=== PATIENT | male | born 1945 | race Caucasian/White ===

== ENCOUNTER 2016-10-28 13:45 | Day surgery (SDC) | payer OTHER, MEDICARE ==
[2016-10-28] MEDS ORDERED: LR 1,000 ML IV ONE (14:13)
[2016-10-28 14:25] VITALS: PULSE 77
--- NOTE | 2016-10-28 15:38 | PDGENHP ---
History & Physical Chief Complaint: surveillance colonoscopy. History of Present Illness: 71 year old male with a family hx of CRC presents for surviellance colonoscopy. Pertinent Past, Social, Family History: PMHx: sky,htn, high cholesterol. FaMHx : Father CRC. SoHx: + alcohol. No cigs Relevant Physical Exam: HEENT: anicteric. CV: RRR + s1s2. Lungs: CTAB No w/r/ r. Abd: soft, nt, + bs. Ext: No c/c/e Cardiorespiratory Assessment: ASA 3
--- NOTE | 2016-10-28 15:39 | PDANEPAE ---
ANE Past Medical History - Cardiovascular History Hx Hypertension: Yes Hx Arrhythmias: Yes Hx Chest Pain: No Hx Coronary Artery / Peripheral Vascular Disease: Yes Hx CHF / Valvular Disease: No Hx Palpitations: No - Pulmonary History Hx COPD: No Hx Asthma/Reactive Airway Disease: No Hx Recent Upper Respiratory Infection: No Hx Oxygen in Use at Home: No - Neurologic History Hx Cerebrovascular Accident: No Hx Seizures: No Hx Dementia: No - Endocrine History Hx Diabetes: No - Renal History Hx Renal Disorders: No - Liver History Hx Hepatic Disorders: No - Neurological & Psychiatric Hx Hx Neurological and Psychiatric Disorders: Yes - Cancer History Hx Cancer: No - Congenital Disorder History Hx Congenital Disorders: No - GI History Hx Gastrointestinal Disorders: No - Chronic Pain History Chronic Pain: Yes (back pain) ANE Review of Systems - Exercise capacity METS (RN): 4 METS - Systems Respiratory: Reports: other (RAUL, uses CPAP with room air) - Pacemaker Pacemaker Type: Permanent Pacer/Defib Pacemaker Tapper Hand: [employer] Pacemaker Model: Evia DR-T Pacemaker Mode: ddd-cls Pacemaker Set Rate: 60 Date Pacemaker Last Checked: 08/05/16 ANE Patient History - Allergies Allergies/Adverse Reactions: No Known Allergies Allergy (Verified 10/16/16 11:14) - Home Medications Home Medications: Cholecalciferol Vit D3 [Vitamin D3 1000 units (OTC)] 07/16/13 [Last Taken 10/28] LORazepam [Ativan 1 mg (RX)] PRN 07/16/13 [Last Taken 10/07/16] Lisinopril [Zestril 20 mg (RX)] 07/16/13 [Last Taken 10/28/16 08:00] Metoprolol Succinate Xr [Toprol Xl 50 mg (RX)] 07/16/13 [Last Taken 10/28/16 08 :00] Eliquis 10/16/16 [Last Taken 10/26/16] - NPO status NPO Since - Liquids (Date): 10/28/16 NPO Since - Liquids (Time): 07:30 NPO Since - Solids (Date): 10/27/16 NPO Since - Solids (Time): 08:00 - Smoking Hx Smoking Status: Former smoker - Family Anes Hx Family Hx Anesthesia Complications: none ANE Labs/Vital Signs - Vital Signs Blood Pressure: 144/93 Heart Rate: 77 Respiratory Rate: 16 O2 Sat (%): 93 Height: 171.45 cm Weight: 88.451 kg ANE Physical Exam - Airway Mallampati Score: Class 2 Mouth exam: normal dental/mouth exam - Pulmonary Pulmonary: no respiratory distress, no rales or rhonchi, clear to auscultation - Cardiovascular Cardiovascular: other (Atrial fib, pacemaker) - ASA Status ASA Status: III ANE Anesthesia Plan Anesthesia Plan: MAC
[2016-10-28] MEDS ORDERED: PROPOFOL 200 MG/20 ML VIAL ONE ×2 (15:42→15:58)
[2016-10-28] MEDS ORDERED: NALOXONE HCL 0.4 MG/ML INJ IVP PRN (15:42)
[2016-10-28] MEDS ORDERED: ONDANSETRON 4 MG/2 ML VIAL IVP PRN (15:47)
--- NOTE | 2016-10-28 16:35 | POSTOPPROG ---
Post Op Note Date of Operation: 10/28/16 Surgeon: Andry Huitron Anesthesia: IV Sedation Pre-op Diagnosis: famhx crc Post-op Diagnosis: asc colon polyp Indication: famhx crc Procedure: colonoscopy with bx Findings: as polyp Inf/Abcess present in the surg proc area at time of surgery?: No
[2016-10-28 16:47] VITALS: TEMP 97.3
--- NOTE | 2016-10-28 16:48 | POSTANESTH ---
Post Anesthetic Evaluation Cardiovascular Status: Similar to Pre-Op Cond Respiratory Status: Normal, Stable, Similar to Pre-op Cond. Level of Consciousness/Mental Status: Can Participate in Eval, Mildly Sleepy, Arousable Pain Control: Adequate, Prn Tx Ordered Nausea/Vomiting Control: Adequate, Prn Tx Ordered Complications Possibly Related to Anesthesia: None Noted
[2016-10-28 17:55] VITALS: BP 156/92
[2016-10-28 17:56] VITALS: RESP 14; O2SAT 95
--- NOTE | 2016-10-29 01:04 | GPN ---
[f rep st] PROCEDURE NOTE DATE OF PROCEDURE: 10/28/2016 PROCEDURE: Colonoscopy with biopsy. INDICATION: The patient is a 71-year-old male with a family history of colon cancer who presents for surveillance colonoscopy. CONSENT: Risks, benefits, and alternatives of the procedure were discussed in great detail with the patient. Risk of infection, bleeding, perforation, and sedation were discussed. All questions answered and informed consent was obtained. MEDICATIONS: Propofol. Please see anesthesiology notes for details. ESTIMATED BLOOD LOSS: Insignificant. COLONOSCOPIC EVALUATION: A rectal exam was performed and palpable masses felt. The Olympus adult colonoscope was introduced into the rectum and advanced to cecum, where the ileocecal valve and appendiceal orifice were seen. The colonic mucosa was carefully examined on both insertion and withdrawal of the scope. The quality of the prep was good. Several diverticula were visualized in the descending and sigmoid colon. In the ascending colon, behind a fold, a 1.2 cm polyp was seen. It was removed in pieces. It was in a challenging location, it was removed in a piecemeal fashion using biopsy forceps. No other masses or polyps seen. IMPRESSION: 1. Complex ascending colon polyp, status post removal by excisional biopsy in a piecemeal fashion. 2. Diverticulosis. RECOMMENDATIONS: 1. Follow up on biopsy results. 2. Fiber supplementation 3. Repeat colonoscopy in 1 year.. /[id number]/MODL MTDD
== END 2016-10-28 17:35 | disposition home or self-care (01) ==
LOC: FSGY 13:45
PROVIDERS: ATTEND Internal Medicine Gastroenterology
PROC: 0DBK8ZX Excision of Ascending Colon, Via Natural or Artificial Opening Endoscopic, Diagnostic (ICD-10-PCS; principal; 2016-10-28 15:30)
DX: Z12.11 Encounter for screening for malignant neoplasm of colon (principal); D12.2 Benign neoplasm of ascending colon; K57.30 Diverticulosis of large intestine without perforation or abscess without bleeding; Z80.0 Family history of malignant neoplasm of digestive organs
CPT/HCPCS: J2704

== ENCOUNTER → 2017-05-08 | Outpatient (CLI) | payer OTHER, MEDICARE | LOC: BHFA 08:30 | PROVIDERS: ATTEND Internal Medicine Cardiovascular Disease | DX: I42.9 Cardiomyopathy, unspecified (principal) ==

== ENCOUNTER 2017-07-21 05:50 | Observation (INO) | payer OTHER, MEDICARE ==
--- NOTE | 2017-07-21 05:57 | EDPHY ---
H & P Stated Complaint: vision problems Source: Patient - Personal History Current Tetanus/Diphtheria Vaccine: Yes Tetanus Vaccine Date: <10YRS - Medical/Surgical History Hx Asthma: No Hx Chronic Respiratory Disease: No Hx Diabetes: No Hx Cardiac Disease: No Hx Renal Disease: No Hx Cirrhosis: No Hx Alcoholism: No Hx HIV/AIDS: No Hx Splenectomy or Spleen Trauma: No Other PMH: a fib, pacemaker, high cholesterol, HTN, - Social History Smoking Status: Former smoker Time Seen by Provider: 07/21/17 05:55 HPI/ROS: HPI CHIEF COMPLAINT: "My eyes were not connected" HISTORY OF PRESENT ILLNESS: Patient is a 72-year-old male, history of hypertension AFib, also has a pacemaker, presents to the emergency room stating that 5 min before 5:00 a.m. When he woke up to get a glass of water as he was thirsty he noticed that his vision was not correct. He describes that his vision was off and he thought he was seeing double or that one eye was looking higher than the other. He denies loss of vision. He denies chest pain or shortness of breath denies headache. He denies dizziness room spinning. He denies feeling off balance. States this lasted approximately 20 min and then resolved on its own. Decided come to the emergency room for further evaluation of this. Currently he has no symptoms. He denies any trouble with his vision or double vision. He states he did not have any numbness or tingling or focal weakness. He does not recall having trouble swallowing. He woke up with the symptoms approximately an hour ago. There are now resolved. He denies chest pain, shortness of breath, palpitations with this. Past Medical History: Obstructive sleep apnea, hypertension, hyperlipidemia, AFib, hypertrophic cardiomyopathy Past Surgical History: Left chest pacemaker Social History: Denies drugs alcohol tobacco daily. Family History: Noncontributory ROS REVIEW OF SYSTEMS: A comprehensive 10 point review of systems is otherwise negative aside from elements mentioned in the history of present illness. Exam Constitutional appears well nontoxic no acute distress, triage nursing summary reviewed, vital signs reviewed, awake/alert. Eyes normal conjunctivae and sclera, EOMI, PERRLA. HENT normal inspection, atraumatic, moist mucus membranes, no epistaxis, neck supple/ no meningismus, no raccoon eyes. Respiratory clear to auscultation bilaterally, normal breath sounds, no respiratory distress, no wheezing. Cardiovascular rate normal, regular rhythm, no murmur, no edema, distal pulses normal. Gastrointestinal soft, non-tender, no rebound, no guarding, normal bowel sounds, no distension, no pulsatile mass. Genitourinary no CVA tenderness. Musculoskeletal no midline vertebral tenderness, full range of motion, no calf swelling, no tenderness of extremities, no meningismus, good pulses, neurovascularly intact. Skin pink, warm, & dry, no rash, skin atraumatic. Neurologic unremarkable neurological exam, no focal neuro deficit appreciated, awake, alert and oriented x 3, AAOx3, moves all 4 extremities equally, motor intact, sensory intact, CN II-XII intact, normal cerebellar, normal vision, normal speech. Psychiatric normal mood/affect. Heme/Lymph/Immune no lymphadenopathy. Differential Diagnosis: Includes but is not limited to in a particular order posterior circulation stroke, CVA, TIA, intracranial bleed, vertigo, electrolyte disturbance, cardiac arrhythmia, dehydration Medical Decision Making: Plan for this patient IV establishment full web analyst obtain EKG and basic blood work including cardiac marker. Chest x-ray. Will proceed with CT head without contrast, and CT angiogram head and neck. He has a left chest pacemaker. His symptoms are currently resolved. And he woke up with these. 0605AM: He has an NIH stroke scale of 0 at this time. He is not a tPA candidate due to the symptoms having resolved as well as he woke up the symptoms. Re-evaluation: 0616: I did speak with [facility] Dr. Palacio we reviewed the case in detail. He does think it is reasonable to do a CT scan head without contrast and a CT angiogram head and neck to further evaluate his circulation. EKG interpretation by me on record in [facility] system. Impression time of EKG 6:14 a.m., atrially paced rhythm. First-degree AV block SD interval 260 right bundle-branch block present. Very similar to the morphology dated 2015 EKG. 0719: CT angiogram head and neck and CT head without contrast shows no evidence of bleed or stroke. No large vessel occlusion. Called to me by Dr. Sinha. Patient be admitted the hospital for further GI evaluation stroke evaluation. Will be admitted for further evaluation. (Joel Hartman) Constitutional: Initial Vital Signs Temperature (C) 36.5 C 07/21/17 05:51 Heart Rate 80 07/21/17 05:51 Respiratory Rate 16 07/21/17 05:51 Blood Pressure 170/104 H 07/21/17 05:51 O2 Sat (%) 96 07/21/17 05:51 O2 Delivery Mode Room Air Allergies/Adverse Reactions: No Known Allergies Allergy (Verified 10/16/16 11:14) Home Medications: Medication Instructions Recorded Cholecalciferol Vit D3 [Vitamin D3 3,000 units PO DAILY 07/16/13 (*)] Apixaban [Eliquis] 5 mg PO BID 10/16/16 Lisinopril [Zestril 40 mg (*)] 40 mg PO DAILY 07/21/17 Metoprolol Tartrate [Lopressor 50 50 mg PO BID 07/21/17 mg (*)] Rosuvastatin Calcium [Crestor] 5 mg PO DAILY 07/21/17 Medical Decision Making Other Provider: Patient was seen and disposition made by Dr. Hartman. I was not involved in the care of this patient. (Hai Bravo) - Data Points Laboratory Results: Laboratory Results 07/21/17 06:05 07/21/17 06:05 Medications Given: Discontinued Medications Apixaban (Eliquis) 5 mg PO BID ON LICENSE OF [facility] Stop: 01/17/18 08:59 Last Admin: 07/21/17 08:54 Dose: Not Given Cholecalciferol (Vitamin D) 3,000 units PO DAILY ON LICENSE OF [facility] Stop: 01/17/18 08:59 Last Admin: 07/21/17 09:33 Dose: Not Given Sodium Chloride (Ns) 1,000 mls @ 0 mls/hr IV ONCE ONE; Wide Open PRN Reason: Protocol Stop: 07/21/17 06:03 Last Admin: 07/21/17 06:16 Dose: 1,000 mls Lisinopril (Zestril) 40 mg PO DAILY ON LICENSE OF [facility] Stop: 01/17/18 08:59 Last Admin: 07/21/17 08:54 Dose: Not Given Metoprolol Tartrate (Lopressor) 50 mg PO BID ON LICENSE OF [facility] Stop: 01/17/18 08:59 Last Admin: 07/21/17 08:54 Dose: Not Given Rosuvastatin Calcium (Crestor) 5 mg PO DAILY ON LICENSE OF [facility] Stop: 01/17/18 08:59 Last Admin: 07/21/17 09:34 Dose: Not Given Departure - Departure Disposition: [facility] Acute Clinical Impression: TIA (transient ischemic attack) Qualifiers: Transient cerebral ischemia type: unspecified Qualified Code(s): G45.9 - Transient cerebral ischemic attack, unspecified Condition: Good
[2017-07-21] MEDS ORDERED: NS 1,000 ML IV ONE (06:02)
--- NOTE | 2017-07-21 06:17 | CPEKG ---
Heart Rate: 64 RR Interval: 938 P-R Interval: 260 QRSD Interval: 144 QT Interval: 460 QTC Interval: 475 P Manito: 56 QRS Manito: -62 T Wave Manito: 139 EKG Severity - ABNORMAL ECG - EKG Impression: ATRIAL-PACED COMPLEXES EKG Impression: FIRST DEGREE AV BLOCK EKG Impression: PROBABLE LEFT ATRIAL ABNORMALITY EKG Impression: RIGHT BUNDLE BRANCH BLOCK EKG Impression: LVH WITH IVCD AND SECONDARY REPOL ABNRM Electronically Signed By: Joel Hartman 21-Jul-2017 07:22:14
[2017-07-21 06:19] LABS: PLATELET COUNT 212 10^3/uL (150-400)
[2017-07-21 06:21] LABS: INR 1.16 (0.83-1.16)
[2017-07-21] MEDS ORDERED: IOPAMIDOL (ISOVUE 370) 100 ML BTL IV ONE (06:23)
[2017-07-21] MEDS ORDERED: ACETAMINOPHEN 325 MG TAB PO PRN (08:26)
[2017-07-21] MEDS ORDERED: ONDANSETRON 4 MG/2 ML VIAL IVP PRN (08:26)
[2017-07-21] MEDS ORDERED: ONDANSETRON DISINTEGRATING 4 MG TAB PO PRN (08:26)
[2017-07-21 08:35] VITALS: O2SAT 93
[2017-07-21] MEDS ORDERED: CHOLECALCIFEROL VIT D3 1,000 UNITS TAB PO SCH (09:00)
[2017-07-21] MEDS ORDERED: METOPROLOL TARTRATE 50 MG TAB PO SCH (09:00)
[2017-07-21] MEDS ORDERED: APIXABAN 5 MG TAB PO SCH (09:00)
[2017-07-21] MEDS ORDERED: LISINOPRIL 40 MG TAB PO SCH (09:00)
[2017-07-21] MEDS ORDERED: ROSUVASTATIN CALCIUM 10 MG TAB PO SCH (09:00)
--- NOTE | 2017-07-21 10:56 | PDGENHP ---
History and Physical - Chief Complaint Acute diplopia - History of Present Illness Primary care provider: Dr. Sandoval Primary console attendant: Dr. Torito Flores HPI: 72-year-old male presenting with acute diplopia characterized as blurred and double vision with onset of symptoms at 4:55 a.m. On the day of presentation , duration 20 min. Patient reports that the symptoms began after he awoke to use the restroom, and they were alleviated without any intervention. He checked his blood pressure at the time of symptoms and noted that his systolic was in the 150s. He has been adherent to all of his home medications he reports that he went to bed feeling well on the evening prior. The patient reports his exercise tolerance is at his baseline and he normally ambulates 4 miles per day without any chest pain or visual symptoms. He does report that he has been experiencing some exertional shortness of breath but this has not substantially worsened in the past month. He also reports that his systolic blood pressure is normally in the 130-140 range, and 1-2 months ago his lisinopril was up titrated by his primary care provider, and he added Crestor. The patient otherwise denies any infectious symptoms and he denies ever experiencing any visual changes. He has recently been working in the garden and has been in a crouched position but has denied any eye irritation. History Information - Allergies/Home Medication List Allergies/Adverse Reactions: No Known Allergies Allergy (Verified 10/16/16 11:14) Home Medications: Cholecalciferol Vit D3 [Vitamin D3 1000 units (OTC)] 3,000 units PO DAILY [Last Taken 07/21/17] Apixaban [Eliquis] 5 mg PO BID 10/16/16 [Last Taken 07/21/17] Lisinopril [Zestril 40 mg (*)] 40 mg PO DAILY 07/21/17 [Last Taken 07/21/17] Metoprolol Tartrate [Lopressor 50 mg (*)] 50 mg PO BID 07/21/17 [Last Taken ] Rosuvastatin Calcium [Crestor 10mg (RX)] 5 mg PO DAILY 07/21/17 [Last Taken ] I have personally reviewed and updated: family history, medical history, social history, surgical history - Past Medical History hypertension, hyperlipidemia Additional medical history: Obstructive sleep apnea. Hypertrophic cardiomyopathy. Complete heart block. Atrial tachycardia, atrial flutter, atrial fibrillation - Surgical History Additional surgical history: Atrial ablation in 2008 in 2008. Permanent pacemaker placement - Family History Additional family history: No coronary artery disease, no CVA - Social History Smoking Status: Former smoker Alcohol Use: Occasionally (1 beer nightly) Drug Use: None Additional social history: Normally physically active, ambulates 4-5 miles daily Review of Systems Review of Systems: ROS: 10pt was reviewed & negative except for what was stated in HPI & below EENMT: Reports: double vision Physical Exam Physical Exam: Temp Pulse Resp BP Pulse Ox 36.6 C 67 16 178/109 H 93 07/21/17 08:27 07/21/17 08:27 07/21/17 08:27 07/21/17 08:27 07/21/17 08:27 Constitutional: no apparent distress, appears nourished, not in pain, obese Eyes: PERRL, anicteric sclera, EOMI, No scleral injection Ears, Nose, Mouth, Throat: moist mucous membranes, hearing normal, ears appear normal, no oral mucosal ulcers Cardiovascular: regular rate and rhythym, no murmur, rub, or gallop (Distant heart sounds), No edema Respiratory: no respiratory distress, no rales or rhonchi, clear to auscultation Gastrointestinal: normoactive bowel sounds, soft, non-tender abdomen, no palpable masses Skin: warm, No abrasion, No erythema, No rash Neurologic: AAOx3, sensation intact bilaterally, CN II-XII Intact, No weakness Psychiatric: interacting appropriately, not anxious, not encephalopathic, thought process linear Lab Data & Imaging Review 07/21/17 06:05 07/21/17 06:05 WBC 5.81 10^3/uL (3.80-9.50) 07/21/17 06:05 RBC 5.30 10^6/uL (4.40-6.38) 07/21/17 06:05 Hgb 17.4 g/dL (13.7-17.5) 07/21/17 06:05 Hct 49.6 % (40.0-51.0) 07/21/17 06:05 MCV 93.6 fL (81.5-99.8) 07/21/17 06:05 MCH 32.8 pg (27.9-34.1) 07/21/17 06:05 MCHC 35.1 g/dL (32.4-36.7) 07/21/17 06:05 RDW 13.2 % (11.5-15.2) 07/21/17 06:05 Plt Count 212 10^3/uL (150-400) 07/21/17 06:05 MPV 9.8 fL (8.7-11.7) 07/21/17 06:05 Neut % (Auto) 61.0 % (39.3-74.2) 07/21/17 06:05 Lymph % (Auto) 22.2 % (15.0-45.0) 07/21/17 06:05 Trinity % (Auto) 12.7 % (4.5-13.0) 07/21/17 06:05 Eos % (Auto) 2.4 % (0.6-7.6) 07/21/17 06:05 Baso % (Auto) 1.0 % (0.3-1.7) 07/21/17 06:05 Nucleat RBC Rel Count 0.0 % (0.0-0.2) 07/21/17 06:05 Absolute Neuts (auto) 3.54 10^3/uL (1.70-6.50) 07/21/17 06:05 Absolute Lymphs (auto) 1.29 10^3/uL (1.00-3.00) 07/21/17 06:05 Absolute Monos (auto) 0.74 10^3/uL (0.30-0.80) 07/21/17 06:05 Absolute Eos (auto) 0.14 10^3/uL (0.03-0.40) 07/21/17 06:05 Absolute Basos (auto) 0.06 10^3/uL (0.02-0.10) 07/21/17 06:05 Absolute Nucleated RBC 0.00 10^3/uL (0-0.01) 07/21/17 06:05 Immature Gran % 0.7 % (0.0-1.1) 07/21/17 06:05 Immature Gran # 0.04 10^3/uL (0.00-0.10) 07/21/17 06:05 PT 15.0 SEC (12.0-15.0) 07/21/17 06:05 INR 1.16 (0.83-1.16) 07/21/17 06:05 APTT 31.8 SEC (23.0-38.0) 07/21/17 06:05 Sodium 139 mEq/L (135-145) 07/21/17 06:05 Potassium 4.4 mEq/L (3.5-5.2) 07/21/17 06:05 Chloride 104 mEq/L (97-110) 07/21/17 06:05 Carbon Dioxide 24 mEq/l (22-31) 07/21/17 06:05 Anion Gap 11 mEq/L (8-16) 07/21/17 06:05 BUN 18 mg/dL (7-23) 07/21/17 06:05 Creatinine 0.8 mg/dL (0.7-1.3) 07/21/17 06:05 Estimated GFR > 60 07/21/17 06:05 Glucose 91 mg/dL (70-100) 07/21/17 06:05 Calcium 9.1 mg/dL (8.5-10.4) 07/21/17 06:05 Troponin I 0.037 ng/mL (0.000-0.034) H 07/21/17 06:05 Triglycerides 69 mg/dL (40-150) 07/21/17 06:05 Cholesterol 161 mg/dL (140-220) 07/21/17 06:05 Cholesterol Risk Factr 0.5 (0.2-1.0) 07/21/17 06:05 LDL Cholesterol, Calc 91 mg/dL (80-100) 07/21/17 06:05 LDL Risk Factor 0.8 (0.2-1.0) 07/21/17 06:05 VLDL Cholesterol 13 mg/dL (8-25) 07/21/17 06:05 Non-HDL Cholesterol 104 mg/dL (90-129) 07/21/17 06:05 HDL Cholesterol 57 mg/dL (40-65) 07/21/17 06:05 LDL/HDL Ratio 1.60 RATIO (1.00-3.64) 07/21/17 06:05 Cholesterol/HDL Ratio 2.82 RATIO (1.00-4.97) 07/21/17 06:05 Visualized and Interpreted Chest x-ray results: Yes Chest X-Ray results: other (Very mild interstitial prominence) Visualized and Interpreted EKG results: Yes EKG Interpretation: Positive for: other (Atrial paced, right bundle branch block , 1st degree AV block) Assessment & Plan Assessment: 72-year-old male presenting with acute diplopia Plan: 1. Diplopia. Acute, new problem this provider, further workup indicated. Given patient's cardiovascular risk factors, he is at risk for TIA -discussed with Dr. Xavier Cardenas, it he will consult from Neurology, he has reported to me a 10 min episode of binocular diplopia which he believes is most likely an intra-ocular issue and not neurovascular, does not recommend adding anti-platelet medications or additional TIA evaluation at this time -CT angiogram demonstrating no head or neck vascular stenosis 2. Abnormal troponin level. Acute, new problem this provider, further workup indicated. Patient presents with marginally elevated troponin level in the setting of acute symptoms including diplopia but no chest pain or chest flutter -his elevated troponin level may be secondary to his underlying hypertrophic cardiomyopathy, but we should trend his troponins to ensure that they are not evidence of acute ischemia -repeat troponin level at 1:00 p.m. -order outside records including most recent echocardiogram from [facility] -get interrogation of pacemaker to ensure he is not experiencing any tachyarrhythmia which would be otherwise causing myocardial ischemia 3. Hypertension. Chronic, currently acutely elevated, potentially secondary to acute distress -continue lisinopril 40 mg daily, continue metoprolol, consider adding amlodipine with outpatient follow-up -reviewed outside records including 07/16/[address] Shelley Espitia, she reports the patient was on metoprolol and amlodipine at that time, patient has not had any adverse reactions to amlodipine 4. Hyperlipidemia. Checking lipid panel now, increase Crestor if LDL not less than 100 5. Atrial fibrillation and atrial flutter. Patient has long history of atrial tachyarrhythmias, getting interrogation to ensure that they are not related to his current symptoms -continue beta-monisha and Eliquis Diet. Regular comma passed swallow eval Prophylaxis. High risk patient, currently on Eliquis Code. Full Disposition. Anticipated discharge is 07/21 versus 07/22, pending cardiac enzyme results as outlined above.
[2017-07-21 12:11] VITALS: BP 162/97; PULSE 76; RESP 21; TEMP 98.1
--- NOTE | 2017-07-21 14:11 | GCON ---
[f rep st] CONSULTATION NEUROLOGY CONSULTATION DATE OF CONSULTATION: 07/21/2017 REFERRING PHYSICIAN: Placido Garza MD CHIEF COMPLAINT: Transient double vision. HISTORY OF PRESENT ILLNESS: The patient is a very pleasant, 72-year-old gentleman with a known history of atrial fibrillation and on Eliquis therapy for oral anticoagulation for at least the last 5 years. He also has a pacemaker implanted in 2012. He does not know of any prior history of stroke or TIA. This morning around 5 a.m. or so, the patient noted he had horizontal double vision. When he closed 1 eye, the 2nd visual object resolved, consistent with binocular horizontal diplopia. This lasted for 10 minutes and then spontaneously resolved. He had no other associated neurologic symptoms such as facial weakness or tingling/numbness. No motor or sensory symptoms in his limbs. No dysarthria. No trouble swallowing. No language or motor speech abnormalities. It was purely isolated horizontal binocular diplopia. He has had no recent changes in medications. He has been on Eliquis since the summer. He was on a different agent prior to that. He does have transitional bifocals, which have not been updated in quite some time. He came to Emergency Department and head CT showed an elderly brain without any previous cortical infarcts. Angiography of the head and neck was negative. He did have a slightly elevated troponin at 0.037. Otherwise, labs were fairly unremarkable. He has had no further symptoms. REVIEW OF SYSTEMS: A 10-point review of systems was only pertinent to the HPI. PAST MEDICAL HISTORY, SOCIAL HISTORY, FAMILY HISTORY, HOME MEDICATIONS, ALLERGIES: See Dr. Garza's H and P. PHYSICAL EXAMINATION: VITAL SIGNS: Blood pressure 172/109, temperature 36.6, heart rate 66, respirations 16. GENERAL: In no acute distress, very pleasant. NEUROLOGICAL EXAMINATION: COGNITION: Higher mental function normal. Oriented 5/5. No obvious cognitive abnormalities. No aphasia. CRANIAL NERVES: Normal 2 through 7. 11 and 12: He has no double vision now. No extraocular movement abnormalities. MOTOR: Normal strength, tone, and reflexes throughout. SENSORY : Normal to light touch throughout. COORDINATION: Normal in upper and lower extremities. SUMMARY: He has normal neurologic exam. IMPRESSION AND PLAN: 1. Transient binocular diplopia, resolved. The patient had an isolated event of binocular horizontal diplopia which has now resolved. The duration was around 10 minutes. There were no other associated neurologic symptoms to suggest an acute neurovascular syndrome. CTA of the head and neck was negative for any large vessel occlusions. Head CT without contrast showed normal changes for age. He has had no further symptoms. He had his pacemaker interrogated and there was no episode dysrhythmia this morning. His last episode of probable atrial flutter was on June 28, according to the pacemaker technologist. He had no chest pain or any other associated symptoms such as shortness of breath. We discussed the differential diagnosis including changes in acuity, as he does have transitional bifocals. He will follow up with Ophthalmology/Optometry as an outpatient to ensure his prescription is up to date. He will also follow up with me in 2-4 weeks for clinical reassessment. I have asked him to see Optometry prior to my appointment. He is agreeable. He will continue oral anticoagulation indefinitely. I do not think we need to add further anti thrombotic therapy -- as this episode is not highly suggestive of acute neurovascular episode. No further recommendations now. I coordinated care with his hospitalist and left a message. Per my view, he can discharge when he is cleared from the medical standpoint. We will look for seeing as an outpatient. Seventy total minutes on floor today reviewing history, neuroimaging, coordinating care, and in direct counseling with the patient. We will sign off and follow up as needed. Please do not hesitate to call with any questions or changes in neurologic status with this very pleasant patient. Thank you for this consultation. /[id number]/MODL MTDD
--- NOTE | 2017-07-21 14:51 | PDDCSUM ---
Discharge Summary Discharge Summary: DISCHARGE SUMMARY FOLLOW-UP ITEMS: Outpatient ophthalmology evaluation Consider outpatient stress test DATE OF ADMISSION: 07/21/2017 DATE OF DISCHARGE: 07/21/2017 DISCHARGE DIAGNOSES: 1. Acute binocular diplopia 2. Acute worsening of chronic hypertension 3. Abnormal troponin level CONSULTATIONS: Neurology PROCEDURES / IMAGING: CT angiogram of the head and neck demonstrating no focal stenosis Interrogation of pacemaker demonstrating no tachy or Stefan arrhythmias at the time of symptoms CHIEF COMPLAINT: Acute diplopia SUBJECTIVE: Patient is feeling well at time discharge, he has not had a recurrence of symptoms PHYSICAL EXAM ON DISCHARGE: Systolic blood pressure 150-160, HR 76,, alert awake oriented x3, no apparent distress, pain level 0/10 LABS ON DISCHARGE: LDL 91, hemoglobin A1c 5.1%, troponin level negative, initially 0.037 HOSPITAL COURSE BY PROBLEM: The patient presented with acute binocular diplopia, most likely secondary to progressive age-related will changes, potentially more on 1 side than the other , resulting in the apparent symptom in low lighting, upon awakening. The symptoms abated without any intervention and the patient was seen by Neurology for consultation. Dr. Xavier Cardenas did not feel like the symptoms were consistent with a TIA and no medication adjustments recommended. The patient was notedly more hypertensive than his baseline, with systolic levels ranging between 150 and 170, and the patient felt like this was secondary to stress from being in the hospital, as his normal blood pressure readings at home are 130-140. That being said, the patient's goal systolic blood pressure should be less than 130, and the patient was advised to follow up with his primary care provider to have repeat levels drawn, and consider introduction of a thiazide diuretic. The patient did have a transiently abnormal troponin level, and is unclear whether this is secondary to acute stress in the setting of his underlying hypertrophic cardiomyopathy, possibly hypertensive related, less likely myocardial ischemia from obstructive coronary disease. That being said, the patient has not recently had a stress test, and I advised the patient to discuss this with his primary care provider in the outpatient setting. Given the patient's exercise tolerance has remained steady and he currently has good metabolic performance, I think it is less likely that he has obstructive disease and will not perform stress test at this time. I did evaluate the patient's echo from Dr. Flores office from 2 months ago, and there were no significant valvular abnormalities which could have contributed to symptoms. The patient also had interrogation of his device and no tachy or Stefan arrhythmias occurred at the time of the patient's symptoms. We recommend the patient follow up with an outpatient machine setter and repairer and then follow up with Dr. Xavier Cardenas if no ophthalmological issues are identified. DISCHARGE MEDICATIONS: Please see official discharge medication reconciliation sheet in chart , continue home medications diet changes. DISCHARGE INSTRUCTIONS: Please follow up with new primary care provider and you primary machine setter and repairer. The patient's initial history and physical was performed greater than 6 hr from the time of the patient's discharge encounter and discharge order. Patient's initial history and physical began at 8:26 a.m., and the discharge evaluation was at 2:44 p.m.
== END 2017-07-21 15:50 | disposition home or self-care (01) ==
LOC: F3N 08:23
PROVIDERS: ADMIT Student in an Organized Health Care Education/Training Program; ATTEND Student in an Organized Health Care Education/Training Program
DX: H53.2 Diplopia (principal); I10 Essential (primary) hypertension; R79.89 Other specified abnormal findings of blood chemistry; Z87.891 Personal history of nicotine dependence; Z95.0 Presence of cardiac pacemaker
CPT/HCPCS: 70450; 70496; 70498; 71045; 93005; G0378; Q9967

== ENCOUNTER → 2017-08-08 | Outpatient (CLI) | payer OTHER, MEDICARE | LOC: BHFA 14:00 | PROVIDERS: ATTEND Internal Medicine Cardiovascular Disease | DX: I48.91 Unspecified atrial fibrillation (principal); I48.92 Unspecified atrial flutter; R79.89 Other specified abnormal findings of blood chemistry | CPT/HCPCS: 78452; 93017; A9500; J2785 ==

== ENCOUNTER 2017-08-26 08:08 | Day surgery (SDC) | payer OTHER, MEDICARE ==
[2017-08-26] MEDS ORDERED: FAMOTIDINE 20 MG TAB PO ONE (08:11)
[2017-08-26] MEDS ORDERED: diphenhydrAMINE 25 MG CAP PO ONE ×2 (08:11→08:33)
[2017-08-26] MEDS ORDERED: DIAZEPAM 5 MG TAB PO ONE (08:11)
[2017-08-26] MEDS ORDERED: NS 1,000 ML IV ONE (08:11)
[2017-08-26] MEDS ORDERED: ASPIRIN EC 325 MG TAB PO ONE ×2 (08:11→08:34)
--- NOTE | 2017-08-26 08:30 | CPEKG ---
Heart Rate: 65 RR Interval: 923 P-R Interval: 260 QRSD Interval: 154 QT Interval: 460 QTC Interval: 479 P [place]: 24 QRS [place]: -63 T Wave [place]: 132 EKG Severity - ABNORMAL ECG - EKG Impression: ATRIAL-PACED COMPLEXES EKG Impression: FIRST DEGREE AV BLOCK EKG Impression: PROBABLE LEFT ATRIAL ABNORMALITY EKG Impression: RIGHT BUNDLE BRANCH BLOCK EKG Impression: LVH WITH IVCD AND SECONDARY REPOL ABNRM Electronically Signed By: Placido Montano 26-Aug-2017 09:33:09
[2017-08-26] MEDS ORDERED: DIAZEPAM 5 MG TAB ONE (08:34)
[2017-08-26] MEDS ORDERED: FAMOTIDINE 20 MG TAB ONE (08:34)
[2017-08-26 08:43] LABS: PLATELET COUNT 201 10^3/uL (150-400)
[2017-08-26] MEDS ORDERED: fentaNYL 100 MCG/2 ML INJ ONE (08:56)
[2017-08-26] MEDS ORDERED: LIDOCAINE 1% 300 MG/30 ML SDV ONE (08:56)
[2017-08-26] MEDS ORDERED: VERAPAMIL 5 MG/2 ML VIAL ONE (08:57)
[2017-08-26] MEDS ORDERED: HEPARIN 10,000 UNIT/10 ML MDV (1,000 UNIT/ML) ONE (08:57)
[2017-08-26] MEDS ORDERED: IOPAMIDOL (ISOVUE-370) 150 ML BTL IV ONE (08:57)
[2017-08-26] MEDS ORDERED: MIDAZOLAM 2 MG/2 ML VIAL ONE ×2 (08:57→10:21)
[2017-08-26 08:59] LABS: INR 1.04 (0.83-1.16); PROTIME(PATIENT) 13.8 SEC (12.0-15.0)
--- NOTE | 2017-08-26 10:06 | PDPROPOC ---
Sedation Plan of Care Sedation Plan of Care: vital signs stable, mental status noted, patient educated of risks, benefits, alternatives, patient can tolerate sedation ASA Classification: ASA 2 Planned drugs: fentanyl, midazolam Mallampati Score: Class 1 Mallampati Reference Image: Patient passed 3-3-2 rule?: Yes
--- NOTE | 2017-08-26 10:06 | PDHPUP ---
History & Physical Update H&P update statement: This history and physical update is based on an assessment of the patient which was completed after admission or registration (within 24 hours), but prior to the surgery/procedure. H&P update: H&P reviewed & patient examined, no change in patient's condition since H&P completed
[2017-08-26] MEDS ORDERED: ATROPINE SULFATE 1 MG/10 ML SYR IVP PRN (10:36)
[2017-08-26] MEDS ORDERED: NITROGLYCERIN 0.4 MG BTL SL PRN (10:36)
--- NOTE | 2017-08-26 10:41 | PDDXCAT ---
Diagnostic Cath Note - . 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 Dominant. Normal EDP: 15 mmHg LVEF: 65 Wall motion: Normal with 50 mmHg resting outflow tract gradient. Complications: none Estimated blood loss: <50ml Closure method: TR Band Assessment: Hypertrophic obstructive cardiomyopathy with resting 50 mmHg outflow tract gradient. Normal Cors. Normal LVEF with normal filling pressures. Plan: Medical therapy Patient Problems: Problems Problem Status Onset Afib - Atrial fibrillation Acute TIA (transient ischemic attack) Acute
== END 2017-08-26 13:09 | disposition home or self-care (01) ==
LOC: FCATH 08:08
PROVIDERS: ATTEND Internal Medicine Interventional Cardiology
PROC: 4A023N7 Measurement of Cardiac Sampling and Pressure, Left Heart, Percutaneous Approach (ICD-10-PCS; principal; 2017-08-26)
PROC: B2111ZZ Fluoroscopy of Multiple Coronary Arteries using Low Osmolar Contrast (ICD-10-PCS; principal; 2017-08-26)
PROC: B2151ZZ Fluoroscopy of Left Heart using Low Osmolar Contrast (ICD-10-PCS; principal; 2017-08-26)
DX: I42.1 Obstructive hypertrophic cardiomyopathy (principal); Z95.0 Presence of cardiac pacemaker
CPT/HCPCS: 93005; 93458; C1769; J1644; J2250; J3010; Q9967

== ENCOUNTER 2017-11-17 12:18 | Day surgery (SDC) | payer OTHER, MEDICARE ==
[2017-11-17] MEDS ORDERED: LIDOCAINE 1% 2 ML INJ ID PRN (13:10)
[2017-11-17] MEDS ORDERED: LR 1,000 ML IV ONE (13:10)
--- NOTE | 2017-11-17 14:31 | PDANEPAE ---
ANE History of Present Illness Screening ANE Past Medical History - Cardiovascular History Hx Hypertension: Yes Hx Arrhythmias: Yes Hx Chest Pain: No Hx Coronary Artery / Peripheral Vascular Disease: Yes Hx CHF / Valvular Disease: No Hx Palpitations: No Cardiovascular History Comment: afib/aflutter. 2nd and 3rd degree block- pacemaker. cad. hypercholesterolemia. bbb - Pulmonary History Hx COPD: No Hx Asthma/Reactive Airway Disease: No Hx Recent Upper Respiratory Infection: No Hx Oxygen in Use at Home: No Hx Sleep Apnea: Yes Sleep Apnea Screening Result - Last Documented: Positive Pulmonary History Comment: sky positive- uses cpap- instructed pt to bring dop - Neurologic History Hx Cerebrovascular Accident: No Hx Seizures: No Hx Dementia: No - Endocrine History Hx Diabetes: No - Renal History Hx Renal Disorders: No - Liver History Hx Hepatic Disorders: No - Neurological & Psychiatric Hx Hx Neurological and Psychiatric Disorders: Yes Neurological / Psychiatric History Comment: anxiety - Cancer History Hx Cancer: No Cancer History Comment: pre-cancerous spot removed from head - Congenital Disorder History Hx Congenital Disorders: No - GI History Hx Gastrointestinal Disorders: No - Other Health History Other Health History: JOINT PAIN. BACK PAIN. TINNITUS. wears bilateral hearing aides. wears glasses - Chronic Pain History Chronic Pain: Yes (back pain) - Surgical History Prior Surgeries: COLONOSCOPY 2017. pacemaker 2013. cardiac ablation 2012 ANE Review of Systems Review of Systems: - Exercise capacity METS (RN): 4 METS - Pacemaker Pacemaker Press Washer: [email or web address] Date Pacemaker Last Checked: 04/17/17 ANE Patient History - Allergies Allergies/Adverse Reactions: No Known Allergies Allergy (Verified 10/16/16 11:14) - Home Medications Home medications: home medication list seen and reviewed Home Medications: Cholecalciferol Vit D3 [Vitamin D3 (*)] 3,000 units PO DAILY 07/16/13 [Last Taken 11/17/17 06:00] Apixaban [Eliquis] 5 mg PO BID 10/16/16 [Last Taken 11/14/17] Lisinopril [Zestril 40 mg (*)] 40 mg PO DAILY 07/21/17 [Last Taken 11/17/17 06: 00] Metoprolol Tartrate [Lopressor 50 mg (*)] 50 mg PO BID 07/21/17 [Last Taken 06:00] Rosuvastatin Calcium [Crestor] 10 mg PO DAILY 07/21/17 [Last Taken 11/16/17] Amlodipine Besylate DAILY 10/30/17 [Last Taken 11/17/17 06:00] - NPO status NPO Since - Liquids (Date): 11/17/17 NPO Since - Liquids (Time): 06:00 NPO Since - Solids (Date): 11/16/17 NPO Since - Solids (Time): 07:00 - Anes Hx Anes Hx: no prior problems - Smoking Hx Smoking Status: Former smoker - Family Anes Hx Family Hx Anesthesia Complications: none ANE Labs/Vital Signs - Vital Signs Blood Pressure: 139/83 Heart Rate: 67 Respiratory Rate: 20 O2 Sat (%): 94 Height: 170.18 cm Weight: 90.718 kg ANE Physical Exam - Airway Neck exam: decreased ROM Mallampati Score: Class 2 Mouth exam: normal dental/mouth exam, hayes - Pulmonary Pulmonary: no respiratory distress - Cardiovascular Cardiovascular: regular rate and rhythym - ASA Status ASA Status: III ANE Anesthesia Plan Anesthesia Plan: MAC
[2017-11-17] MEDS ORDERED: LIDOCAINE 2% 5 ML SDV ONE (14:35)
[2017-11-17] MEDS ORDERED: PROPOFOL 200 MG/20 ML VIAL ONE ×2 (14:35)
[2017-11-17] MEDS ORDERED: fentaNYL 100 MCG/2 ML INJ IVP PRN (14:40)
[2017-11-17] MEDS ORDERED: NALOXONE HCL 0.4 MG/ML INJ IVP PRN (14:40)
--- NOTE | 2017-11-17 14:41 | PDGENHP ---
History & Physical Chief Complaint: hx polyps History of Present Illness: 72 year old male presents for surveillance colonoscopy. He has a history of a complex ascending colon polyp. Pertinent Past, Social, Family History: PMHx: RAUL, pacer, hypercholesterolemia Relevant Physical Exam: HEENT: anicteric. CV: RRR + s1s2. Lungs: CTAB. Abd: soft, nt, + bs, No guarding or rebound Cardiorespiratory Assessment: ASA 3
--- NOTE | 2017-11-17 15:27 | POSTANESTH ---
Post Anesthetic Evaluation Cardiovascular Status: Similar to Pre-Op Cond Respiratory Status: Similar to Pre-op Cond. Level of Consciousness/Mental Status: Alert and Oriented Pain Control: Adequate, Prn Tx Ordered Nausea/Vomiting Control: Adequate, Prn Tx Ordered Complications Possibly Related to Anesthesia: None Noted
--- NOTE | 2017-11-17 15:38 | GIREPORT ---
[facility] - Endoscopy Department Patient Name: Leo Cason Procedure Date: 11/17/2017 2:08 PM Patient Type: Outpatient Attending MD/ ER Physician: Andry Huitron MD Procedure: Colonoscopy Indications: High risk colon cancer surveillance: Personal history of colonic polyps Patient Profile: 72 year old male with a history of a complex polyp in the ascending col on presents for surveillance colonoscopy. Providers: Andry Huitron MD Medicines: Monitored Anesthesia Care Complications: No immediate complications. Estimated blood loss: None. Description of Procedure: After obtaining informed consent, the scope was passed under direct vis ion. Throughout the procedure, the patient's blood pressure, pulse, and oxyg en saturations were monitored continuously. The Colonoscope with irrigatio n channel was introduced through the anus and advanced to the cecum, identified by appendiceal orifice and ileocecal valve. The colonoscopy was performed without difficulty. The patient tolerated the procedure well. The quality of the bowel preparation was adequate to identify polyps. The ileocecal valve, appendiceal orifice, and rectum were photographed. Findings: The perianal and digital rectal examinations were normal. Pertinent negatives include no palpable rectal lesions. Diverticula were found in the sigmoid colon and descending colon. A 6 mm polyp was found in the cecum. The polyp was sessile. The polyp w as removed with a cold snare. Resection and retrieval were complete. Estimated Blood Loss: Estimated blood loss: none. Post Op Diagnosis: - Diverticulosis in the sigmoid colon and in the descending colon. - One 6 mm polyp in the cecum, removed with a cold snare. Resected and retrieved. Recommendation: - Discharge patient to home (with escort). - Resume previous diet. - Continue present medications. - Repeat colonoscopy in 2 years for surveillance. - Thank you for allowing me to participate in the care of your patient. Attending Participation: I personally performed the entire procedure. Andry Huitron MD Andry Huitron MD 11/17/2017 3:37:49 PM This report has been signed electronicallyAndry Huitron MD Number of Addenda: 0 Note Initiated On: 11/17/2017 2:08 PM Total Procedure Duration Time 0 hours 34 minutes 37 seconds [email or web address]
[2017-11-17 16:38] VITALS: BP 149/94
== END 2017-11-17 16:40 | disposition home or self-care (01) ==
LOC: FSGY 12:18
PROVIDERS: ATTEND Internal Medicine Gastroenterology
PROC: 0DBH8ZX Excision of Cecum, Via Natural or Artificial Opening Endoscopic, Diagnostic (ICD-10-PCS; principal; 2017-11-17 14:45)
DX: Z12.11 Encounter for screening for malignant neoplasm of colon (principal); G47.33 Obstructive sleep apnea (adult) (pediatric); K57.32 Diverticulitis of large intestine without perforation or abscess without bleeding; I10 Essential (primary) hypertension; I48.91 Unspecified atrial fibrillation; I25.10 Atherosclerotic heart disease of native coronary artery without angina pectoris; Z95.0 Presence of cardiac pacemaker; E78.00 Pure hypercholesterolemia, unspecified; Z87.19 Personal history of other diseases of the digestive system
CPT/HCPCS: J2704

== ENCOUNTER → 2018-06-18 | Outpatient (CLI) | payer OTHER, MEDICARE | LOC: FCPNEURO 20:00 | PROVIDERS: ATTEND Student in an Organized Health Care Education/Training Program | DX: G47.33 Obstructive sleep apnea (adult) (pediatric) (principal) ==